=== PATIENT | male | born 1970 | race Caucasian/White ===

== ENCOUNTER 2022-10-09 16:02 | Emergency (ER) | payer SELFPAY ==
[2022-10-09 16:20] VITALS: BP 151/91; PULSE 88; RESP 20; TEMP 36.7; O2SAT 95; BMI 36.6
--- NOTE | 2022-10-09 16:23 | EXP.UTC ---
Discharge Plan Disposition Patient Disposition: Home, Self-Care Condition: Good Prescriptions Prescriptions: New promethazine-DM 6.25-15 mg/5 mL Syrup 5 ml PO Q6H PRN (Reason: Cough) Qty: 240 0RF methylprednisolone 4 mg Tablets,Dose Pack 4 mg PO DIRECTED Qty: 21 0RF albuterol sulfate [Ventolin HFA] 90 mcg/actuation HFA aerosol inhaler 2 puff inhalation Q6H PRN (Reason: shortness of breath or wheezing) Qty: 6.7 0RF amoxicillin-pot clavulanate 875-125 mg Tablet 1 tab PO Q12H Qty: 20 0RF No Action albuterol sulfate 90 mcg/actuation aerosol powdr breath activated 2 inh inhalation Q4-6H PRN (Reason: shortness of breath or wheezing) Qty: 1 0RF Referrals Follow up/Referrals: Sesar Amaya MD [Primary Care Provider] - See instructions Activity Restrictions/Add. Instructions Additional Instructions/Restrictions: Drink plenty of fluids. Take tylenol or ibuprofen for pain or fever. Take the medications as directed. Follow up with your regular doctor. GO TO THE ER FOR ANY WORSENING SYMPTOMS The cough medication (promethazine dm) will make you drowsy, so don't drive or operate heavy machinery after taking it. Clinical Impressions Clinical Impression: Acute bronchitis, Sinusitis Instructions Patient Instructions: DI for Sinusitis, DI for Acute Bronchitis Discharge [place] Provider[place] [facility] [place] General Stated complaint: alfonso, cough Time Seen by Provider: 10/09/22 16:23 History of Present Illness Provider Complaint: He c/o sinus congestion for the past 1 week. Related Data Previous Rx's Medication Instructions Recorded albuterol sulfate 90 mcg/actuation 2 inh inhalation Q4-6H PRN 05/22/22 breath activated powder inhaler shortness of breath or wheezing #1 ea albuterol sulfate 90 mcg/actuation 2 puff inhalation Q6H PRN 10/09/22 aerosol inhaler (Ventolin HFA) shortness of breath or wheezing #6.7 grams amoxicillin 875 mg-potassium 1 tab PO Q12H #20 tabs 10/09/22 clavulanate 125 mg tablet methylprednisolone 4 mg tablets in 4 mg PO DIRECTED #21 tabs 10/09/22 a dose pack promethazine-DM 6.25 mg-15 mg/5 mL 5 ml PO Q6H PRN Cough #240 mL 10/09/22 oral syrup Allergies Allergy/AdvReac Type Severity Reaction Status Date / Time No Known Allergies Allergy Verified 07/24/22 13:18 [facility] Disclaimer: The information contained in this section may have been updated after the patient was seen, as this information can be updated by other users. Social History Smoking Status: Never smoker alcohol intake: never substance use type: denies use current occupational status: employed Travel in the last 8 weeks: Inside the [place] ROS Obtained: Yes All systems reviewed & no additional complaints except as documented Constitutional Constitutional: Reports poor appetite Eyes Eyes: Reports system reviewed and no additional complaints, except as documented ENT Ears, Nose, Mouth, and Throat: Reports as per HPI Cardiovascular Cardiovascular: Reports system reviewed and no additional complaints, except as documented and Denies chest pain Respiratory Respiratory: Denies shortness of breath, Denies chest congestion, Reports cough, Denies stridor and Denies wheezing Gastrointestinal Gastrointestingal: Reports system reviewed and no additional complaints, except as documented; Denies abdominal pain, diarrhea or vomiting Musculoskeletal Musculoskeletal: Reports system reviewed and no additional complaints, except as documented and Denies arthralgias Integumentary/Breasts Skin/Breast: Reports system reviewed and no additional complaints, except as documented and Denies rash Neurologic Neurologic: Denies paresthesias Allergic/Immunologic Allergic/Immunologic: Denies wheezing Physical Exam General General appearance: alert and in no apparent distress Eye Eye exam: Present normal appearance, PERRL and
[2022-10-09 16:57] VITALS: BP 151/91; PULSE 88; RESP 20; TEMP 36.7; O2SAT 95
== END 2022-10-09 17:00 | disposition home or self-care (01) ==
PROVIDERS: Emergency Provider Nurse Practitioner Family; PCP Family Medicine
DX: J20.9 Acute bronchitis, unspecified (principal); J01.90 Acute sinusitis, unspecified
CPT/HCPCS: 99204; 99212; G0463

== ENCOUNTER → 2023-03-14 17:08 | Outpatient (CLI) | payer OTHER, SELFPAY ==
--- NOTE | 2023-03-14 17:22 | XR_ITS ---
PROCEDURE INFORMATION: Exam: XR Left Hand Exam date and time: 03/14/2023 5:24 PM Age: 52 years old Clinical indication: Finger(s); Patient HX: Pain in left thumb down to wrist; Additional info: Pain of left thumb TECHNIQUE: Imaging protocol: Radiologic exam of the left hand. Views: 3 or more views. COMPARISON: No relevant prior studies available. FINDINGS: Bones/joints: Normal. Soft tissues: Normal. IMPRESSION: No acute findings.
--- NOTE | 2023-03-14 17:23 | XR_ITS ---
PROCEDURE INFORMATION: Exam: XR Right Knee Exam date and time: 03/14/2023 5:24 PM Age: 52 years old Clinical indication: Knee; Right; Patient HX: Pain around patella; Additional info: Pain in right knee TECHNIQUE: Imaging protocol: Radiologic exam of the right knee. Views: 3 views. COMPARISON: No relevant prior studies available. FINDINGS: Bones/joints: No acute fracture or dislocation is identified. Soft tissues: Normal. IMPRESSION: No acute osseous injury.
== END ==
PROVIDERS: PCP Family Medicine; Visit Provider Family Medicine
DX: M79.645 Pain in left finger(s) (principal); M25.561 Pain in right knee
CPT/HCPCS: 73130; 73562

== ENCOUNTER → 2023-03-31 17:14 | Outpatient (CLI) | payer OTHER, SELFPAY | PROVIDERS: PCP Family Medicine; Visit Provider Family Medicine | DX: G47.30 Sleep apnea, unspecified (principal); R53.83 Other fatigue; R06.83 Snoring; E66.9 Obesity, unspecified ==

== ENCOUNTER → 2023-04-17 16:48 | Outpatient (CLI) | payer OTHER, SELFPAY | LOC: SL 16:49 | PROVIDERS: PCP Family Medicine; Visit Provider Family Medicine | DX: R06.83 Snoring (principal); R53.83 Other fatigue; E66.9 Obesity, unspecified; Z68.35 Body mass index [BMI] 35.0-35.9, adult | CPT/HCPCS: G0399 ==

== ENCOUNTER 2023-07-02 08:30 | Day surgery (SDC) | payer OTHER, SELFPAY ==
[2023-06-03 09:52] VITALS: BMI 35.3
[2023-07-02] VITALS (7 sets, daily range): BP systolic 106–142; BP diastolic 64–82; PULSE 59–81; RESP 14–20; TEMP 36.7–37.2; O2SAT 92–97
--- NOTE | 2023-07-02 09:20 | EXP.ANES.CKL ---
[facility] Disclaimer: The information contained in this section may have been updated after the patient was seen, as this information can be updated by other users. Medical History History of kidney stones History of stent insertion of renal artery No significant past medical history Surgical History History of tonsillectomy Hx of hernia repair Family History Other Family history of cancer Family history of myocardial infarction Social History Smoking Status: Never smoker alcohol intake: never substance use type: denies use current occupational status: employed Travel in the last 8 weeks: None [facility] Anesthesia Checklist Patient Identification Patient Identification: Arm Band and Verbal (Name & ) Structural Data Admitted From: Home Planned Operative Procedure/s: Colonoscopy Consent for Planned Operative Procedure(s) Verified: Yes NPO Status Verified Time NPO: 00:00 Additional verifications Anesthesia Reactions: No Airway Assessment Mallampati Score:: Class III C-Spine Mobility Assessed: Yes TMJ Mobility Assessed: Yes Dentition: Good Dentition Neurological Assessment Level of Consciousness: Awake Hx Seizures: No Numbness or tingling in extremities: No Anesthesia Plan Anesthesia Risk discussed: Yes Anesthesia Plan: Verified ASA Class: III Anesthesia Type: MAC
--- NOTE | 2023-07-02 09:46 | HMH.SCOPE ---
Procedure: Date: 07/02/23 Patient Date of :: 1970 Procedure Performed:: Colonoscopy Indications:: The patient is a 53 year old who presents for surveillance colonoscopy for a history of polyps Performing Provider:: Omari Mitchell MD Referring Provider:: Jw Tobias MD Sedation:: See RN records Procedure:: After placing the patient in the left lateral decubitus position, the colonoscopy was gently inserted into the rectum and under direct visualization advanced to the cecum which was identified by transillumination in the right lower quadrant, identification of the ileocecal valve, appendiceal orifice, and cecal strap. Color, texture, mucosa, and anatomy of the colon were carefully examined with the scope. Findings:: Anal canal: normal Rectum: Hemorrhoids Sigmoid colon: normal without polyps or inflammatory changes Descending colon: Sessile polyp less than 5 mm in size. Removed with cold snare polypectomy Splenic flexure: normal Transverse colon: normal without polyps or inflammatory changes Hepatic flexure: normal Ascending colon: Sessile polyp less than 5 mm in size. Removed with cold snare polypectomy Cecum: normal Terminal ileum: not visualized Impression: Polyps x 2 Fair bowel preparation Hemorrhoids Recommendations:: Await pathology results Repeat coloonoscopy in 3 years Complications:: None Estimated blood obtained (mL): 0 Colonoscopy Component Colonoscopy Component Was a colonoscopy performed during today's procedure?: Yes Recommended follow up colonoscopy of at least 10 years?: Yes
--- NOTE | 2023-07-02 10:21 | SUR.PHASEII ---
0946 - Pt to post op w/ oral air way in place. VSS. Pt on 3 L O2 per nasal cannula. @ bedside. Anesthesia aware. 1010 - Oral airway out at this time. Pt on room air. No s/s of resp distress. VSS. Pt awake and appropriate.
== END 2023-07-02 10:29 | disposition home or self-care (01) ==
PROVIDERS: PCP Family Medicine; Visit Provider Internal Medicine
PROC: 0DJD8ZZ Inspection of Lower Intestinal Tract, Via Natural or Artificial Opening Endoscopic (ICD-10-PCS; CPT 45378; principal; 2023-07-02 09:30)
DX: Z12.11 Encounter for screening for malignant neoplasm of colon (principal); Z86.010 Personal history of colon polyps; K64.8 Other hemorrhoids; D12.2 Benign neoplasm of ascending colon
CPT/HCPCS: 45385; J2704

== ENCOUNTER 2024-01-22 11:02 | Outpatient (CLI) | payer OTHER, SELFPAY ==
[2024-01-22 19:15] LABS: Basophils # 0.1 K/mm3 (0-0.2); Basophils % 1.1 % (0.1-2.0); Eosinophils # 0.2 K/mm3 (0.0-0.4); Eosinophils % 3.7 % (0.1-12.0); Hematocrit 50.6 % (42.0-52.0); Hemoglobin 16.9 g/dL (14.1-18.0); Lymphocytes # 1.6 K/mm3 (0.7-4.5); Mean Corpuscular HGB Conc 33.4 g/dL (31.8-35.4); Mean Corpuscular Hemoglobin 33.5 pg (27.0-31.2); Mean Corpuscular Volume 100.2 fl (80-94); Mean Platelet Volume 10.8 fl (7.4-10.4); Monocytes # 0.3 K/mm3 (0.1-1.0); Monocytes % 6.1 % (1.7-9.3); Neutrophils # 3.4 K/mm3 (1.8-7.8); Neutrophils % 60.2 % (37.0-80.0); Platelet Count 84 K/mm3 (142-424); Red Blood Count 5.05 M/mm3 (4.60-6.20); Red Cell Distribution Width 14.1 % (11.5-17.5); White Blood Count 5.7 K/mm3 (4.8-10.8)
[2024-01-22 19:55] LABS: Chloride 112 mmol/L (98-107); Potassium 3.9 mmoL/L (3.5-5.1); Sodium 142 mmol/L (136-145)
[2024-01-22 19:57] LABS: Alanine Aminotransferase 54 U/L (12-78); Aspartate Amino Transferase 68 U/L (17-59); Blood Urea Nitrogen 14 mg/dl (9-20); Estimated Glomerular Filt Rate 63 ml/min (>60); GFR (African American) 76 ML/MIN (>60)
[2024-01-22 19:58] LABS: Albumin/Globulin Ratio 1.4 (1.1-1.8); Alkaline Phosphatase 109 U/L (38-126); Anion Gap 9.9 mEq/L (5-15); Bilirubin,Total 1.2 mg/dl (0.2-1.3); Calcium 9.2 mg/dl (8.4-10.2); Carbon Dioxide 24 mmol/L (22.0-30.0); Globulin 2.9 g/dL (1.3-3.2); Glucose 97 mg/dl (74-100); Total Protein,Serum 6.9 g/dl (6.3-8.2)
[2024-01-22 20:10] LABS: NT Pro Brain Natriuretic Pep. 31.6 pg/mL (0-125)
[2024-01-22 20:53] LABS: Hemoglobin A1C 5.7 % (4.0-6.0)
== END 2024-01-22 23:59 | disposition home or self-care (01) ==
LOC: LAB.DROPOF 01-23 11:03
PROVIDERS: PCP Nurse Practitioner; Visit Provider Nurse Practitioner
DX: R60.0 Localized edema (principal)
CPT/HCPCS: 80053; 83036; 83880; 85025

== ENCOUNTER 2024-02-04 21:34 | Outpatient (CLI) | payer OTHER, SELFPAY ==
[2024-02-04 21:48] LABS: Adenovirus F 40/41, stool Not Detected (NotDetected); Astrovirus Not Detected (NotDetected); Campylobacter Not Detected (NotDetected); Cryptosporidium Not Detected (NotDetected); Cyclospora Cayetanesis Not Detected (NotDetected); Entamoeba histolytica Not Detected (NotDetected); Enteroaggregative E coli Not Detected (NotDetected); Enteropathogenic E coli Not Detected (NotDetected); Enterotoxigenic E coli Not Detected (NotDetected); Giardia lamblia Not Detected (NotDetected); Norovirus Not Detected (NotDetected); Plesimonas Shigalloides, PCR Not Detected (NotDetected); Rotavirus A Not Detected (NotDetected); Salmonella, PCR Not Detected (NotDetected); Sapovirus Not Detected (NotDetected); Shiga-like toxin E coli Not Detected (NotDetected); Shigella Enterovasive E coli Not Detected (NotDetected); Vibrio Cholerae Not Detected (NotDetected); Vibrio, PCR Not Detected (NotDetected); Yersinia Entercolitica, PCR Not Detected (NotDetected)
[2024-02-05 02:16] LABS: Occult Blood,Stool Negative (Negative)
[2024-02-07 15:09] LABS: H. pylori Stool Ag, EIA Negative (Negative)
[2024-02-09 11:04] LABS: Clostridium Difficile A/B, PCR Detected (NotDetected)
== END 2024-02-04 23:59 | disposition home or self-care (01) ==
LOC: LAB.DROPOF 21:35
PROVIDERS: PCP Nurse Practitioner; Visit Provider Nurse Practitioner
DX: R19.5 Other fecal abnormalities (principal); R15.9 Full incontinence of feces
CPT/HCPCS: 82272; 87045; 87177; 87338; 87507; G0328

== ENCOUNTER 2024-02-13 15:22 | Outpatient (CLI) | payer OTHER, SELFPAY ==
--- NOTE | 2024-02-13 15:23 | CT_ITS ---
FINAL REPORT TECHNIQUE: Axial images through the chest was performed with and without contrast by computed tomography. Sagittal and coronal reformatted images were obtained and reviewed. This study was performed with techniques to keep radiation doses as low as reasonably achievable (ALARA). Individualized dose reduction techniques using automated exposure control or adjustment of mA and/or kV according to the patient's size were employed. CLINICAL HISTORY: abnormal CXR, edema FINDINGS: There is prominent cardiophrenic angle fat consistent with an anterior diaphragmatic hernia measuring 18.7 cm in transverse dimension. No axillary adenopathy is identified. There is no mediastinal or hilar adenopathy. The heart is normal in size. There is no pleural or pericardial effusion. No suspicious pulmonary mass or nodule is identified. Limited images of the upper abdomen show the liver to be somewhat nodular, may represent cirrhosis. There is partially imaged splenomegaly. 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 Possible cirrhosis with partially imaged splenomegaly. Reviewed, Interpreted and Dictated by Octaviano Sweeney III, MD Transcribed by Marion Estrella Authenticated and [facility]
[2024-02-13] MEDS: IOPAMIDOL-370 (76%);100ML BOTTLE 75 ML IV (15:46)
[2024-02-13] MEDS: SODIUM CHLORIDE 0.9% 10ML SYR (RAD ONLY) 10 ML IV (15:46)
== END 2024-02-13 23:59 | disposition home or self-care (01) ==
LOC: RAD 15:23
PROVIDERS: PCP Nurse Practitioner; Visit Provider Nurse Practitioner
DX: R91.8 Other nonspecific abnormal finding of lung field (principal); R60.0 Localized edema
CPT/HCPCS: 71270; Q9967

== ENCOUNTER 2024-02-20 06:12 | Outpatient (CLI) | payer OTHER, SELFPAY ==
--- NOTE | 2024-02-20 | CA_ITS ---
APPROVED REPORT Exam: Pharmacologic Technologist: Irasema Mcelroy, Ht: 6 ft 1 in Wt: 270 lbs BSA: 2.44 m2 HR: 62 bpm BP: 127/74 mmHg Rhythm: NSR, low voltage QRS Indications: CP Medical History Medications: Cefdinir,,,,, Furosemide,,,,, Cardiac Risk Factors: FHX of CAD Stress Test Details Test: LEXISCAN Reversal agent Aminophyline 100.0 mg, given intravenously for Headache. HR Resting HR: 63 bpm Max Heart Rate (APMHR): 165 bpm Max HR Achieved: 89 bpm Target HR (85% APMHR): 140 bpm % of APMHR: 54 Recovery HR: 71 bpm BP Resting BP: 127.0/74.0 mmHg Max BP: 127.0/74.0 mmHg Recovery BP: 105.0/67.0 mmHg ECG Resting ECG: NSR, low voltage QRS Stress ECG: No significant ST changes Arrhythmia: None Clinical Exercise duration: 04:00 min Highest Stage Achieved: Exercise capacity: 1.0 METs Stress ECG Conclusion During lexiscan pt experinced melaise, generalized weakness, light headed, and mild chest discomfort. Aminophylline 100mg given. No arrhythmia noted. No signficiant ST changes. Conclusion: Unremarkable lexiscan stress. Myoview images reported separately. Test Summary REST . . . . . . . Sitting REST 07:58 . . 63 . 127/ 74 . . Stage 1 01:00 . . 69 . . . . Stage 2 01:00 . . 83 . . . . Stage 3 01:00 . . 78 . 97/ 63 . . Stage 4 01:00 . . 74 . 106/ 59 . Stop exercise at 04:00 RECOVERY 01:00 . . 71 . 105/ 67 . . RECOVERY 02:00 . . 67 . 105/ 67 . . RECOVERY 03:00 . . 66 . 106/ 69 . . RECOVERY 04:00 . . 69 . 106/ 69 . . RECOVERY 05:00 . . 66 . 116/ 67 . . RECOVERY 06:00 . . 65 . 116/ 67 . . RECOVERY 07:00 . . 71 . 104/ 64 . . RECOVERY 08:00 . . 78 . 114/ 74 . . RECOVERY 09:00 . . 72 . 107/ 77 . . RECOVERY 10:00 . . 73 . 117/ 77 . . RECOVERY 10:25 . . 74 . 117/ 77 . . Electronically signed by : Nyasia Jo MD 02/23/2024 12:09:15
--- NOTE | 2024-02-20 06:13 | CA_ITS ---
APPROVED REPORT EXAM: Comprehensive 2D, Doppler, and color-flow Echocardiogram Shuttle Hand: Ana De La Rosa CRT Ht: 6 ft 1 in Wt: 270lbs BSA: 2.44 BP: 134/82 mmHg Indications: Chest Pain, Shortness of Breath, Peripheral Edema 2D Dimensions Left Atrium 2.80 cm LA Volume 35.20 mL LVOT 2.04 cm (M/F) 1.5-2.5 LA Volume Index 14.40 mL/m2 (M/F) 16-34 EF AP4 63.40 % GL Strain -18.9 % M-Mode Dimensions RVDd 2.22 cm (0.9-2.6) LVDd 4.69 cm (3.5-5.7) Ao Diam 4.16 cm (2.0-3.7) LVDs 3.31 cm (3.5-5.7) IVSd 1.15 cm (0.6-1.1) PWd 1.32 cm (0.6-1.1) EF (Teich) 56.30% FS 29.40% EDV (Teich) 101.90 mL TAPSE 2.92 (<1.7) ESV (Teich) 44.50 mL LV Diastology E Decel Time 150 (160-240 msec) E/A Ratio 1.31 MED E' 10.5 (>= 7 cm/sec) MED A' 9.40 cm/s E'/MED E' Ratio 6.75 (<= 14) LAT E' 13.1 (>= 10 cm/sec) LAT A' 10.30 cm/s E/LAT E' Ratio 5.41 (<= 14) Aortic Valve AoV Peak Gómez. 131.0 (50-130 cm/s) AO Peak GR. 6.90 mmHg Mitral Valve MV E Max Gómez. 71.0 (40-130 cm/s) MV A Velocity 54.0 (40-130 cm/s) E/A Ratio 1.31 MV Decel. Time 150 (160-240 ms) Tricuspid Valve TR P. Velocity 230.00 cm/s RAP Estimate 10.00 mmHg RVSP 31.20 mmHg Left Ventricle The left ventricle is normal size. The left ventricular systolic function is normal. The left ventricular ejection fraction is within the normal range. There is normal left ventricular wall thickness. There is normal LV segmental wall motion. The left ventricular diastolic function is normal. LVEF is 55%. Right Ventricle Right ventricle is mildly dilated. The right ventricular systolic function is normal. Atria The left atrium size is normal. The right atrium size is normal. There is no Doppler evidence of interatrial shunt. Aortic Valve The aortic valve opens well. There is no aortic valvular stenosis. No aortic regurgitation is present. Mitral Valve The mitral valve is normal in structure. No evidence of mitral valve stenosis. There is no mitral valve regurgitation noted. Tricuspid Valve The tricuspid valve leaflets are thin and pliable. Trace tricuspid regurgitation. There is insufficient TR jet to estimate RVSP. Pulmonic Valve The pulmonary valve is normal in structure. Trace pulmonic regurgitation. Great Vessels The aortic root is normal in size. The ascending aorta is normal in size. IVC is normal in size and collapses >50% with inspiration. Pericardium There is no pericardial effusion. Other Information Study Quality: Fair Conclusion Normal biventricular systolic function. Mild RV dilation. No signiificant valvular stenosis or regurgitation. Electronically signed by : Nyasia Jo MD 02/23/2024 14:25:01
--- NOTE | 2024-02-20 06:29 | NM_ITS ---
APPROVED REPORT Exam: Nuclear Stress Test Indication: FM HX, C.P., SOB, PALPITATIONS, FATIGUE Patient Location: Outpatient Stress Tech: Yovani GAONA Tech:Nila DominguezDANIEL RT (R)(N)(M) Ht: 6 ft 1 in Wt: 270 lbs HR: 62 bpm BP: 127/74 mmHg BSA: 2.44 m2 TID: 1.08 BMI: 35.6 History: FM HX, C.P., SOB, PALPITATIONS, FATIGUE Procedure: Patient received 0.4 mg of intravenous Lexiscan, resting heart rate 62 bpm, resting blood pressure 127/74 mmHg, with Lexiscan maximum heart rate achieved was 83 bpm which is % of the maximum predicted heart rate and blood pressure was 112/66 mmHg. C/O MILD C.P. WITH LEXISCAN Cardiac Stress and Resting SPECT Images: Cardiac Stress and Resting SPECT images were obtained using technetium 99m Myoview 32.4 mCi stress and 10.21 mCi at rest. Resting and stress imaging in supine and prone positions demonstrate no evidence of fixed or reversible perfusion defects. Gated imaging demonstrates normal global and regional LV systolic function. LVEF is calculated at 62%. Conclusion: No evidence of fixed or reversible perfusion defects. Gated imaging demonstrates normal global and regional LV systolic function. LVEF is calculated at 62%. Electronically signed by : Nyasia Jo MD 02/23/2024 12:36:25
[2024-02-20] MEDS: SODIUM CHLORIDE 0.9% 10ML SYR (RAD ONLY) 10 ML IV ×2 (06:30→08:10)
[2024-02-20] MEDS: REGADENOSON 0.4MG/5ML SYRINGE 0.4 MG IV (08:10)
[2024-02-20] MEDS: ISOTOPE MYOVIEW (PER STUDY) 1 DOSE IV (10:19)
== END 2024-02-20 23:59 | disposition home or self-care (01) ==
PROVIDERS: PCP Nurse Practitioner; Visit Provider Nurse Practitioner
DX: R07.89 Other chest pain (principal); R06.00 Dyspnea, unspecified; R60.0 Localized edema; R94.31 Abnormal electrocardiogram [ECG] [EKG]; R53.83 Other fatigue
CPT/HCPCS: 78452; 93017; 93018; 93306; A9502; J0280; J2785

== ENCOUNTER 2025-04-13 19:50 | Outpatient (CLI) | payer OTHER, SELFPAY ==
--- OUTSIDE RECORDS SUMMARY | 2023-05-24 04:00 | XMS_ITS | Continuity of Care Document ---
Author Organization [facility] o Address [address] [place] [address] Phone Care Team Providers Care Cardiology Fellow Name Role Phone Tan SWANN, Richard Unavailable Unavailable Allergies, Adverse Reactions, Alerts Substance Reaction Status Criticality No Known Allergies Active No Inform ation Procedures Procedure Date Office/outpatient visit,[facility] 2022 X-ray exam of knee, 4+ views Advance Directives Directive Yes / No Effective Date File Name No Information Encounters Encounter Description Practice Location Reason(s) For Visit Diagnoses Date Provider Providers Copied on Encounter Office/outpat ient visit,[facility], [address] [facility] [place], [address], [place] tel:[phone] 00 [facility] Pain in right knee Tan Ramos. [address] [place], [id number] , [place]. tel:[phone] Referring Provider: Richard Amaya, [place], [address] . tel:[phone] Family History Family Member Type Diagnosis Age At Onset Father Problem (finding) Congenital heart diseas e Mother Problem (finding) Congenital heart diseas e Payers Payer name Insurance type Covered alliance party ID Authoriza tion(s) [employer] - [id number] Social History Type Description Quantity Date Captured Comments Alcohol Use Details No Caffeine Use Details Unknown Tobacco Use Status No Information Smoking Status Never smoker Sex Male Vital Signs Date / Time: Height Weight BMI Pulse Rate Blood Pressure Temperature Respiratory Rate Body Surface Area Head Circumference Head Circ. Percentile Wt./Jesus. Percentile BMI percentile Pulse Ox Inhaled Ox 8:10 AM 73.00 in 124.738 kg (275.00 lbs) 36.2 8 kg/m eter (2) Chief Complaint And Reason For Visit No Information Reason For Referral Reason For Referral No Information History Of Present Illness Encounter Date Complaint History Of Prese nt Illness knee Functional Status Date Functional Assessmen t No Information Instructions Date Instruction Additional Infor mation No Information Assessments Type Assessment Date No Information Patient Care Teams Name Effective Dates (start - stop) Status Members No Information
--- OUTSIDE RECORDS SUMMARY | 2025-04-13 19:54 | XMS_ITS | Clinical Summary ---
Author Organization Healthcare Address [address] [place] [address] Care Team Providers Care District Agent Name Role Phone Emiliano Marie MD Primary Care Provider [phone] Social History Tobacco Use Types Packs/Day Years Used Date Smoking Tobacco: Never Alcohol Use Standard Drinks/Week Comments No 0 (1 standard drink = 0.6 oz pur e alcohol) Sex and Gender Information Value Date Recorded Sex Assigned at Not on file Legal Sex Male 7:11 PM EDT Gender Identity Not on file Sexual Orientation Not on file Last Filed Vital Signs Vital Sign Reading Time Taken Comments Blood Pressure - - Pulse - - Temperature - - Respiratory Rate - - Oxygen Saturation - - Inhaled Oxygen Concentration - - Weight 112 kg (247 lb 15.9 oz) 06/21/2015 1:39 P M EST Height 185.4 cm (6' 1 ) 06/21/2015 1:39 PM EST Body Mass Index 32.72 06/21/2015 1:39 PM EST Plan of Treatment Not on file Care Teams District Agent Relationship Specialty Start Date End Date Emiliano Marie MD [address] [place] [address] PCP - General 12/15/20
--- OUTSIDE RECORDS SUMMARY | 2025-04-13 19:55 | XMS_ITS | Patient Health Record ---
Author Organization [facility] Address [address] [place] [id number] Care Team Providers Care Snow Removing Supervisor Name Role Phone Eleno Marie Primary Care Provider [phone] Allergies No Known Allergies Reason For Referral No Information Medications Medication SIG (Take, Route, Frequency, Duration) Notes Start Date End Date Status CPAP machine and supplies - as directed as directed Autopap 01/1706/12/2023 Active AutoPAP - 01/17 mask and suppli es as directed 04/26/2023 Active Problems Problem Type SNOMED Code ICD Code Onset Dates Problem Status W/U Status Risk Notes Problem Gastroesophageal reflux disease (disorder) (537562584) GERD [Gastroesophag eal reflux disease] (530.81) Active confirmed Problem Vitamin B12 deficiency (302456195) Vitamin B12 deficiency (E53.8) Active confirmed Problem Tremor (10173174) Tremor (R25.1) Active confirm ed Problem Skin tag (88866889) Skin tag (L91.8) Active confirmed Problem History of polyp of colon (situation) (511755126) History of colon polyps (Z86.010) Active confirmed Problem Sleep apnea (94334569) Sleep apnea, unspecified type (G47.30) Active confirmed Problem Pericardial cyst (772534991) Pericardial cyst (Q24.8) Active confirmed Problem Obesity (200862104) Non morbid obesity (E66.9) Active confirmed Plan Of Treatment No Information Insurance Providers Payer Name Payer Address Payer Phone Subscriber Number Group Number Insured Name Patient Relationship to Insured Coverage Start Date Coverage End Date [facility] [address] [place], [place] [id number] [employer] [place] [employer] Self - patient is the insured Medications Administered Medication Instructions Date of Administration Dosage Notes B-12 09/17/2019 1 mL Medical (General) History Medical History History ICD Code hernia asthma 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
== END 2025-04-13 23:59 | disposition home or self-care (01) ==
LOC: LAB 19:53
PROVIDERS: PCP Nurse Practitioner
DX: R69 Illness, unspecified (principal)